=== PATIENT | female | born 1995 | race Caucasian/White ===

== ENCOUNTER 2016-07-02 03:57 | Outpatient (CLI) | payer OTHER ==
[~2016-07-02] VITALS: Ht 170.2 cm; Wt 85.0 kg
--- NOTE | 2016-07-02 06:51 | HPE ---
DATE OF ADMISSION: 07/02/2016 21 old 1, para 0 at 39 and 6 weeks of gestation, came in with irregular contractions. No vaginally bleeding or no vaginal loss. LMP 09/27/2015, EDC 07/03/2016. She is presently on Prozac for anxiety and apparently took her Prozac prior to coming into labor and delivery. Labs show she is B+, HIV negative, Hep negative, RPR negative, rubella immune. Varicella immune. Urine was negative. Gonorrhea and chlamydia are negative. 1-hour glucose was 80. Group B Streptococcus (GBS) is negative. She is in no acute distress. Her blood pressure is 119/78, temperature is 97.4, respirations are 80 and pulse is 91. Urine is 1.025, trace of blood and negative for the rest. Pelvic examination: She is 1 cm anterior, 80% effaced, -2 station. An hour later, she was a similar condition. Her contractions spaced out. The rest of the examination is unremarkable. She has a category 1 strip, normocephalic, atraumatic. Neck full range of motion. Pupils equal and reactive to light. Distal pulses symmetric. No evidence of DVT, PE or superficial phlebitis. Chest is clear bilaterally to bases. No wheezes or rhonchi. No CVA tenderness. Uterus is nontender. Four quadrant bowel sounds are noted. Appropriate fundal height. No rashes, lesions or pruritus. Does have multiple tattoos. No arthralgia or myalgia. No complaints of cough, wheeze, shortness of breath or dyspnea on exertion. No chest pain, not bleeding. Neuro complete. No incontinency or urgency. No nausea, vomiting, diarrhea or constipation. No diabetic issues. She is a nonsmoker. No alcohol. No drug abuse. She is . There is no domestic violence. In summary, we have a 39 and 6 week gestation with uterine irritability. The patient was counseled regarding kick chart, premature rupture of membranes, bleeding and labor, when to contact provider. The patient has a followup on Tuesday with her provider. Was told to come back at any time should contractions increase, vaginal bleeding or loss of fluid. The patient was discharged undelivered. 30-minute discussion with both and her , understand the plan of care.
[2016-07-03] MEDS ORDERED: PRENTAB9 PO (09:08)
[2016-07-03] MEDS ORDERED: PROZ20CA11 PO (09:30)
[2016-07-03] MEDS ORDERED: FERR325T3 PO (09:32)
== END 2016-07-02 06:25 | disposition home or self-care (01) ==
LOC: M LDO 03:57
PROVIDERS: ATTEND Obstetrics & Gynecology
DX: O47.1 False labor at or after 37 completed weeks of gestation (principal); Z3A.39 39 weeks gestation of pregnancy

== ENCOUNTER 2016-07-03 08:23 | Outpatient (CLI) | payer OTHER ==
[~2016-07-03] VITALS: Ht 170.2 cm; Wt 86.0 kg
[2016-07-03 08:31] VITALS: BP 129/85
[2016-07-03] MEDS ORDERED: PRENTAB9 PO (09:08)
[2016-07-03] MEDS ORDERED: PROZ20CA11 PO (09:30)
[2016-07-03] MEDS ORDERED: FERR325T3 PO (09:32)
[2016-07-03 09:34] VITALS: BP 134/84
[2016-07-04] MEDS ORDERED: TYLE1TAB5 PO (14:28)
[2016-07-04] MEDS ORDERED: COLA100C PO (14:28)
== END 2016-07-03 09:41 | disposition home or self-care (01) ==
LOC: M LDO 08:23
PROVIDERS: ATTEND Obstetrics & Gynecology
DX: O47.1 False labor at or after 37 completed weeks of gestation (principal); Z3A.40 40 weeks gestation of pregnancy

== ENCOUNTER 2016-07-03 23:08 | Outpatient (CLI) | payer OTHER ==
[~2016-07-03 23:08] MED LIST: FERR325T3 PO; PRENTAB9 PO; PROZ20CA11 PO
[2016-07-04] MEDS ORDERED: TYLE1TAB5 PO (14:28)
[2016-07-04] MEDS ORDERED: COLA100C PO (14:28)
== END 2016-07-04 00:22 | disposition home or self-care (01) ==
LOC: M LDO 23:08
PROVIDERS: ATTEND Obstetrics & Gynecology
DX: O47.1 False labor at or after 37 completed weeks of gestation (principal); Z3A.40 40 weeks gestation of pregnancy

== ENCOUNTER 2016-07-04 12:52 | Inpatient (IN) | payer OTHER ==
[~2016-07-04] VITALS: Ht 170.2 cm; Wt 89.0 kg
[2016-07-04] VITALS (20 sets, daily range): BP systolic 115–152; BP diastolic 62–90
[2016-07-04] MEDS ORDERED: LACTATED RINGER'S 1000 ML IV STA (13:00)
[2016-07-04 13:16] LABS: MEAN CORPUSCULAR HEMOGLOBIN 26.8 pg (27.0-33.0); MEAN CORPUSCULAR HGB CONC 34.3 g/dl (32.0-36.5); MEAN CORPUSCULAR VOLUME 78.2 fl (80.0-96.0); RED CELL DISTRIBUTION WIDTH 15.3 % (11.5-14.5); WHITE BLOOD COUNT 18.4 K/mm3 (4.0-10.0)
[2016-07-04] MEDS ORDERED: FENTANYL 2MCG/ML ROPIVACAINE 0.2% NACL 250 ML CADD As Ordered ONE (13:43)
[2016-07-04] MEDS ORDERED: TYLE1TAB5 PO (14:28)
[2016-07-04] MEDS ORDERED: COLA100C PO (14:28)
[2016-07-04] MEDS ORDERED: EPIDURAL COMMENT XX SCH (15:00)
[2016-07-04] MEDS ORDERED: FENTANYL/ROPIVACAINE/NACL CADD 250 ML EPIDURAL SCH (15:00)
[2016-07-04] MEDS ORDERED: LACTATED RINGER'S 1000 ML IV PRN (15:00)
[2016-07-04] MEDS ORDERED: ePHEDrine SULFATE 25 MG/5 ML(5MG/ML) SYRINGE IV PRN (15:00)
[2016-07-04] MEDS ORDERED: ONDANSETRON 4MG/2ML VIAL (J2405) IV PRN (15:00)
[2016-07-04] MEDS ORDERED: REFRIGERATOR IV KEYS XX PRN (15:00)
[2016-07-04] MEDS ORDERED: EPIDURAL/PCA KEYS XX PRN (15:00)
[2016-07-04] MEDS ORDERED: diphenhydrAMINE INJ 50MG/ML VIAL (J1200) IV PRN (15:00)
[2016-07-04] MEDS ORDERED: NALOXONE INJ 0.4 MG/1 ML VIAL (J2310) IV PRN (15:00)
[2016-07-05] VITALS (12 sets, daily range): BP systolic 117–149; BP diastolic 62–86
[2016-07-05] MEDS ORDERED: LR 1,000 ML IV SCH (00:26)
[2016-07-05] MEDS ORDERED: OXYTOCIN DRIP 30 UNITS in APPROPRIATE DILUENT 1 EA IV SCH ×2 (00:30→04:15)
[2016-07-05] MEDS ORDERED: OXYTOCIN 30 UNITS IN 0.9% NaCl 500ML IV BAG (J2590) As Ordered ONE (00:35)
[2016-07-05] MEDS ORDERED: METHYLERGONOVINE MALEATE 0.2 MG/ML VIAL (J2210) IM PRN (04:15)
[2016-07-05] MEDS ORDERED: MEASLES,MUMPS,RUBELLA VACCINE INJ (MMR-II) (90707) SC SCH (04:15)
[2016-07-05] MEDS ORDERED: RHOGAM 300 MCG (1500 IU) INJ (J2790) IM SCH (04:15)
[2016-07-05] MEDS ORDERED: ACETAMINOPHEN 500 MG TAB PO PRN (04:15)
[2016-07-05] MEDS ORDERED: DIBUCAINE 1% OINTMENT 30GM TOP PRN (04:15)
[2016-07-05] MEDS: PRENATAL VITAMIN TAB PO SCH (09:00)
[2016-07-05] MEDS: IBUPROFEN 800 MG TAB PO PRN ×2 (09:08→20:25)
[2016-07-06 06:12] VITALS: BP 119/64
--- NOTE | 2016-07-06 06:52 | IPNPDOC ---
Text Note Date of Service The patient was seen on 07/06/16 at 06:52. NOTE PPD1 prog note Pt states feeling well, minimal pain. VB slowing. Brst feeding OK. No CP/LP/ SOB. Voiding and ambulatory. VSSAF Fundus at U-1, firm LE no CCE a/p: Doing well. Discharge today, to boarding if baby not d/c'd. Sessions VS,Kelly, I+O VSKelly I+O Vital Signs Date Time Temp Pulse Resp B/P Pulse Ox O2 Delivery O2 Flow Rate FiO2 07/06/16 06:12 96.3 67 16 119/64 07/05/16 06:00 97 Room Air I&O- Last 24 Hours up to 6 AM 07/06/16 06:00 Output Total 900 ml Balance -900 ml SESSIONS,BERNARDINO Vega MD Jul 06, 2016 06:52
[2016-07-06] MEDS: PRENATAL VITAMIN TAB PO SCH (08:48)
[2016-07-06] MEDS: IBUPROFEN 800 MG TAB PO PRN (08:49)
[2016-07-06 15:25] VITALS: BP 115/63
[2016-07-06 18:06] VITALS: BP 127/79
[2016-07-07] MEDS: IBUPROFEN 800 MG TAB PO PRN ×2 (00:13→08:50)
[2016-07-07 05:59] VITALS: BP 138/80
[2016-07-07] MEDS: PRENATAL VITAMIN TAB PO SCH (08:50)
[2016-07-07] MEDS ORDERED: PRENTAB9 PO (10:01)
[2016-07-07] MEDS ORDERED: ACET50TA PO (10:01)
[2016-07-07] MEDS ORDERED: IBUP-1114 PO (10:01)
[2016-07-07] MEDS ORDERED: DIBU1OIN TOP (10:02)
[2016-07-07] MEDS ORDERED: COLA100C PO (10:02)
--- NOTE | 2016-07-07 12:38 | DSES ---
DATE OF ADMISSION: 07/04/2016 DATE OF DISCHARGE: 07/07/2016 This lady is a 21-year-old 1, now para 1, who was admitted with spontaneous rupture of membranes and labor at 40 and 1 weeks of gestation. She had a spontaneous vaginal delivery of a live female , 6 pounds 14 ounces, 3101 grams scores of 7 and 9 at one and five minutes respectively. Her admitting hemoglobin was 11.4, hematocrit 33.4 and platelets were 282. Vital signs on discharge today: Blood pressure 138/80, respirations 16, pulse 73, temperature 97.0. We discussed phlebitis, cystitis, mastitis, endometritis and cellulitis, diet, pain management, perineal, breast and wound care, risk factors, as she has anxiety, was on medications, and anemia. She did sustain a right labial laceration which was oversewn in the usual fashion. On discharge, she is normocephalic, atraumatic. Neck: Full range of motion. Pupils equal and reactive to light. Distal pulses are symmetric. No evidence of deep venous thrombosis (DVT), pulmonary embolism (PE), or superficial phlebitis. No wheezes or rhonchi. Chest is clear bilaterally bases. No costovertebral angle (CVA) tenderness. Uterus two below. Lochia is moderate. Four quadrant bowel sounds are noted. Perineum is intact and healing. No rashes or lesions or pruritus. No arthralgia or myalgia. No complaints of cough, wheezes, shortness of breath or dyspnea on exertion. No chest pain. No bleeding. Neurologically complete. No urgency, frequency. No nausea, vomiting, diarrhea, constipation. No diabetic issues. She does not smoke or drink, does not abuse drugs. She is . There is no domestic violence. In summary, we have a term gestational delivered a live female infant for discharge with medications. Follow up in six weeks' time for checkup. D
== END 2016-07-07 13:20 | disposition home or self-care (01) | DRG 775 ==
LOC: M LDO 12:52 → M LDI 12:58 → M OBS 07-05 05:58
PROVIDERS: ADMIT Obstetrics & Gynecology; ATTEND Obstetrics & Gynecology
PROC: 10E0XZZ Delivery of Products of Conception, External Approach (ICD-10-PCS; principal; 2016-07-05)
PROC: 0HQ9XZZ Repair Perineum Skin, External Approach (ICD-10-PCS; 2016-07-05)
DX: O48.0 Post-term pregnancy (principal); F41.9 Anxiety disorder, unspecified; D64.9 Anemia, unspecified; Z37.0 Single live birth; Z3A.40 40 weeks gestation of pregnancy; Z79.899 Other long term (current) drug therapy; O99.344 Other mental disorders complicating childbirth; O99.02 Anemia complicating childbirth; O77.0 Labor and delivery complicated by meconium in amniotic fluid; O70.0 First degree perineal laceration during delivery

== ENCOUNTER → 2016-10-10 | Outpatient (REF) | payer OTHER ==
[~2016-10-10] MED LIST changes: +ACET50TA PO; +COLA100C3 PO; +DIBU1OIN TOP; +IBUP-1114 PO; +TYLE1TAB5 PO
== END ==
LOC: M SFHCLERA 14:21
PROVIDERS: ATTEND Nurse Practitioner Family
DX: R30.0 Dysuria (principal)

== ENCOUNTER 2016-11-11 23:50 | Emergency (ER) | payer OTHER ==
[~2016-11-11] VITALS: Ht 170.2 cm; Wt 81.6 kg
[2016-11-11 23:51] VITALS: BP 113/69
[2016-11-12] MEDS ORDERED: CLAR1TAB2 PO (00:15)
== END 2016-11-12 | disposition left against medical advice (07) ==
LOC: M ED 11-12 00:31
DX: R11.10 Vomiting, unspecified (principal); Z79.899 Other long term (current) drug therapy; Z53.29 Procedure and treatment not carried out because of patient's decision for other reasons

== ENCOUNTER 2017-02-05 18:54 | Emergency (ER) | payer OTHER ==
[~2017-02-05] VITALS: Ht 170.2 cm; Wt 192.0 kg
[~2017-02-05 18:54] MED LIST changes: +CLAR1TAB2 PO; -COLA100C3 PO; +COLA100C5 PO
[2017-02-05 18:55] VITALS: BP 131/77
== END 2017-02-05 21:22 | disposition home or self-care (01) ==
LOC: M ED 18:54
DX: O26.892 Other specified pregnancy related conditions, second trimester (principal); M54.5 Low back pain; R10.2 Pelvic and perineal pain; Z3A.25 25 weeks gestation of pregnancy; O99.512 Diseases of the respiratory system complicating pregnancy, second trimester; J30.9 Allergic rhinitis, unspecified

== ENCOUNTER 2017-02-05 21:21 | Outpatient (CLI) | payer OTHER ==
[~2017-02-05] VITALS: Ht 170.2 cm; Wt 81.2 kg
[2017-02-05 21:31] VITALS: BP 122/78
== END 2017-02-05 22:02 | disposition home or self-care (01) ==
LOC: M LDO 21:21
PROVIDERS: ATTEND Student in an Organized Health Care Education/Training Program
DX: O26.892 Other specified pregnancy related conditions, second trimester (principal); Z3A.25 25 weeks gestation of pregnancy; M54.5 Low back pain

== ENCOUNTER 2017-02-22 12:53 | Emergency (ER) | payer OTHER ==
[~2017-02-22] VITALS: Ht 231.1 cm; Wt 87.7 kg
[2017-02-22] MEDS ORDERED: FERR1TAB8 (13:00)
[2017-02-22] MEDS ORDERED: ALBUTEROL SULFATE 2.5 MG/0.5 ML INH NEB SOLN NEB ONE (14:15)
[2017-02-22] MEDS ORDERED: NS 1,000 ML IV ONE (14:15)
--- NOTE | 2017-02-22 14:36 | REP ---
Chest one-view HISTORY: Dyspnea Comparison: None The lungs are clear. The heart is normal in size. The pulmonary vasculature is normal in appearance. Impression: No acute disease. Signed by Abraham Dominguez MD 02/22/2017 02:27 P
[2017-02-22 15:01] LABS: ALBUMIN 2.8 GM/DL (3.2-5.2); ALBUMIN/GLOBULIN RATIO 0.57 (1.00-1.93); ALKALINE PHOSPHATASE 88 U/L (45-117); ALT/SGPT 16 U/L (12-78); ANION GAP 9 MEQ/L (8-16); AST/SGOT 17 U/L (15-37); BILIRUBIN,TOTAL 0.5 MG/DL (0.2-1.0); BLOOD UREA NITROGEN 6 MG/DL (7-18); CALCIUM LEVEL 8.4 MG/DL (8.5-10.1); CARBON DIOXIDE LEVEL 24 MEQ/L (21-32); CHLORIDE LEVEL 105 MEQ/L (98-107); GLOMERULAR FILTRATION RATE > 60.0 (>60); GLUCOSE, FASTING 98 MG/DL (70-105); POTASSIUM SERUM 3.4 MEQ/L (3.5-5.1); SODIUM LEVEL 138 MEQ/L (136-145); TOTAL PROTEIN 7.7 GM/DL (6.4-8.2)
[2017-02-22 15:02] LABS: BASO % 0.1 % (0.0-1.0); EOS # 0.5 K/mm3 (0.0-0.50); EOS % 2.9 % (0.0-3.0); LARGE UNSTAINED CELL # 0.1 K/mm3 (0.0-0.4); LARGE UNSTAINED CELL % 0.5 % (0.0-4.0); LYMPH # 0.8 K/mm3 (1.5-6.5); LYMPH % 4.6 % (24.0-44.0); MEAN CORPUSCULAR HEMOGLOBIN 24.7 pg (27.0-33.0); MEAN CORPUSCULAR HGB CONC 33.3 g/dl (32.0-36.5); MONO # 0.5 K/mm3 (0.0-0.8); MONO % 3.1 % (0.0-5.0); NEUTROPHILS # 14.6 K/mm3 (1.8-7.7); NEUTROPHILS % 88.8 % (36.0-66.0); PLATELET COUNT, AUTOMATED 270 k/mm3 (150-450); WHITE BLOOD COUNT 16.5 K/mm3 (4.0-10.0)
[2017-02-22 15:09] VITALS: BP 123/71
[2017-02-22] MEDS ORDERED: AMOX500C PO (15:13)
[2017-02-22] MEDS ORDERED: ALBU17IN INH (15:15)
--- NOTE | 2017-02-22 15:18 | REP ---
Clinical: Shortness of breath and edema . Technique: Salvador scale and color Doppler evaluation using linear high frequency transducer. Findings: Ultrasound examination of the right and left lower extremity deep venous structures from the common femoral vein to the popliteal vein demonstrates normal compressibility flow and wave patterns in response to respiration and augmentation. There is no evidence for deep venous thrombosis. Impression: No evidence for deep venous thrombosis bilaterally . Signed by Curt Bacon MD 02/22/2017 03:09 P
== END 2017-02-22 15:50 | disposition home or self-care (01) ==
LOC: EDBD 12:53 → M ED 12:53
DX: O98.513 Other viral diseases complicating pregnancy, third trimester (principal); J06.9 Acute upper respiratory infection, unspecified; Z3A.28 28 weeks gestation of pregnancy

== ENCOUNTER 2017-05-12 18:08 | Inpatient (IN) | payer OTHER ==
[~2017-05-12] VITALS: Ht 170.2 cm; Wt 91.9 kg
[2017-05-12] VITALS (17 sets, daily range): BP systolic 113–138; BP diastolic 61–84
[~2017-05-12 18:08] MED LIST changes: +ALBU17IN INH; +AMOX500C PO; +FERR1TAB8
[2017-05-12] MEDS ORDERED: TUMS500C PO (18:25)
[2017-05-12] MEDS ORDERED: FERR325T3 PO (18:27)
[2017-05-12] MEDS ORDERED: LACTATED RINGER'S 1000 ML IV STA (18:55)
[2017-05-12] MEDS ORDERED: LR 1,000 ML IV SCH ×2 (19:00→19:12)
[2017-05-12] MEDS ORDERED: OXYTOCIN DRIP 30 UNITS in APPROPRIATE DILUENT 1 EA IV SCH (19:15)
[2017-05-12 19:34] LABS: MEAN CORPUSCULAR HEMOGLOBIN 21.5 pg (27.0-33.0); MEAN CORPUSCULAR HGB CONC 31.3 g/dl (32.0-36.5); MEAN CORPUSCULAR VOLUME 68.7 fl (80.0-96.0); PLATELET COUNT, AUTOMATED 208 10^3/uL (150-450); RED CELL DISTRIBUTION WIDTH 20.1 % (11.5-14.5); WHITE BLOOD COUNT 8.5 10^3/uL (4.0-10.0)
--- NOTE | 2017-05-12 19:35 | HPEPDOC ---
Obstetrical History & Physical General Date of Admission May 12, 2017 at 18:46 History of Present Illness 21 y/o at 39+2 with LOF 1-2 hrs ago. Ctx's this AM, not many this afternoon/evening. Pos FM. No VB. Chief Complaint: LOF, term Information Provided By: Patient Care Care: Good Care Dating Final EDC by: LMP, 1st trimester (US) (10 wk US) Antepartum Course Diagnos(e)s closely spaced pregnancies, anemia, on Fe for only one month 1NOV HCT 27.4, PLT 248 Past Medical History Past Obstetrical History : Past Obstetrical History: Multigravida Type of Delivery: Spontaneous Vaginal Del. 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 INTERN History: No pertinent history Past Medical History Medical History depression, no meds currently Surgical History: Denies/None Family History Significant Family History: No pertinent family hx Social History Marital Status: Family situation: Spouse/partner home Psychosocial History: No pertinent psych hx * Smoker: non-smoker Alcohol: Denies Drugs: denies Abuse Violence Screening Have you been hit/kicked/slapp: No Have you been sexually assault: No Imunizations Tdap status: current Influenza Status: needs Allergies Coded Allergies: No Known Allergies (Unverified , 07/04/16) Medications Scheduled Ferrous Sulfate (Ferrous Sulfate) 325 Mg Tab, 325 MG PO TID Multivitamins/ ( 27-0.8 mg) 1 Tab Tab, 1 TAB PO DAILY Scheduled PRN Calcium Carbonate (Tums) 500 Mg Chw, 500 MG PO for INDIGESTION Physical Examination Physical Examination GENERAL: Alert and oriented times three. ABDOMEN: Gravid and non-tender to touch. FETUS: Is vertex (VTX) by sterile vaginal examination (SVE), 3/75/-2/vtx well applied EXTREMITIES: No edema. Vital Signs/I&O Vital Signs Date Time Temp Pulse Resp B/P (MAP) Pulse Ox O2 Delivery O2 Flow Rate FiO2 05/12/17 18:23 120 05/12/17 18:20 98.8 130/74 (92) Laboratory Data 24H [facility] Laboratory Tests 2 05/12/17 19:12: Serology Scanned Report Hepatitis B Testing Urine Culture: Contaminated Pertinent Laboratoy Data Blood Type: B+ RBC Antibody Screen: Negative HIV: Negative Hepatitis B: Negative Hepatitis C: Unknown Rapid Plasma Reagin: Nonreactive Rubella: Immune Varicella: Immune Chlamydia/Gonorrhea: Negative Group B Streptococcus: Negative Quad Screen Test: Declined Cystic Fibrosis: Negative Glucose Tolerance Test: 131 Anatomy Ultrasound Placenta Location: Posterior Normal Anatomy: Yes Placenta Previa: No Assessment Variability: Moderate Accelerations: Positive Decelerations: None Tocometer Frequency: irregular Assessment/Plan Assessment SROM at ~1800. Favorable cx. Will start pitocin as is not really jacqueline much. Plan Admit and orient. Wire Mesh Knitter and consent. Diet: clrs Group B Streptococcus (GBS) neg Labs and intravenous (IV) per unit protocol. Counseled on Pitocin and augmentation of labor (IOL). Lactated Ringers (LR): Bolus 1000 mL, then at 125 mL/hr. Anticipate C-S as appropriate. SESSIONS,BERNARDINO Vega MD May 12, 2017 19:35
[2017-05-12 20:22] LABS: MEAN CORPUSCULAR HEMOGLOBIN 21.6 pg (27.0-33.0); MEAN CORPUSCULAR HGB CONC 30.5 g/dl (32.0-36.5); MEAN CORPUSCULAR VOLUME 70.7 fl (80.0-96.0); PLATELET COUNT, AUTOMATED 273 10^3/uL (150-450); WHITE BLOOD COUNT 12.4 10^3/uL (4.0-10.0)
[2017-05-12] MEDS ORDERED: FENTANYL 2MCG/ML ROPIVACAINE 0.2% IN 0.9% NACL 200ML IVBAG As Ordered ONE (20:52)
[2017-05-12] MEDS ORDERED: LACTATED RINGER'S 1000 ML IV PRN (22:45)
[2017-05-12] MEDS ORDERED: NALOXONE INJ 0.4 MG/1 ML VIAL (J2310) IV PRN (22:45)
[2017-05-12] MEDS ORDERED: ONDANSETRON 4MG/2ML VIAL (J2405) IV PRN (22:45)
[2017-05-12] MEDS ORDERED: EPIDURAL COMMENT XX SCH (22:45)
[2017-05-12] MEDS ORDERED: REFRIGERATOR IV KEYS XX PRN (22:45)
[2017-05-12] MEDS ORDERED: EPIDURAL/PCA KEYS XX PRN (22:45)
[2017-05-12] MEDS ORDERED: ePHEDrine SULFATE 25 MG/5 ML(5MG/ML) SYRINGE IV PRN (22:45)
[2017-05-12] MEDS ORDERED: diphenhydrAMINE INJ 50MG/ML VIAL (J1200) IV PRN (22:45)
[2017-05-12] MEDS ORDERED: FENTANYL/ROPIVACAINE/NACL BAG 200 ML EPIDURAL SCH (22:45)
[2017-05-13] VITALS (12 sets, daily range): BP systolic 105–148; BP diastolic 59–82
--- NOTE | 2017-05-13 00:38 | IPNPDOC ---
Text Note Date of Service The patient was seen on 05/13/17. NOTE FHT Cat 1. One isolated decel. Pos accels and mod darling. Cx 7/100/0 Recheck in ~2-3 hrs, sooner prn. Sessions VS,Kelly, I+O VSKelly I+O Laboratory Tests 05/12/17 19:27 Red Blood Count 5.72 H, Mean Corpuscular Volume 68.7 L, Mean Corpuscular Hemoglobin 21.5 L, Mean Corpuscular Hemoglobin Concent 31.3 L, Red Cell Distribution Width 20.1 H 05/12/17 20:13 Red Blood Count 4.03, Mean Corpuscular Volume 70.7 L, Mean Corpuscular Hemoglobin 21.6 L, Mean Corpuscular Hemoglobin Concent 30.5 L, Red Cell Distribution Width 19.0 H Vital Signs Date Time Temp Pulse Resp B/P (MAP) Pulse Ox O2 Delivery O2 Flow Rate FiO2 05/12/17 22:58 99.3 65 17 113/63 (80) SESSIONS,BERNARDINO Vega MD May 13, 2017 00:38
[2017-05-13] MEDS ORDERED: OXYTOCIN DRIP 30 UNITS in APPROPRIATE DILUENT 1 EA IV SCH (02:48)
--- NOTE | 2017-05-13 02:54 | DNPDOC ---
[facility] Delivery Note Delivery Note DATE OF DELIVERY: [id number] @[id number] PREDELIVERY DIAGNOSIS: 39+3/7 weeks' gestation and labor. POST DELIVERY DIAGNOSIS: Delivered. PROCEDURE: Spontaneous vaginal delivery STORE OPERATIONS SPECIALIST: Dr. Merrill ANESTHESIA: Epidural ESTIMATED BLOOD LOSS: 200 mL. FINDINGS: 8 pound 7 ounce male infant, Score 9/9 DELIVERY SUMMARY: Pushed well after reaching C/C. No delay on the perineum of the vtx or ant left shoulder. Body del'd, to abd. Good tone and cry. Cord C/ C by FOB. Fundal massage, placenta del'd intact. No lacs. Uncomplicated. BERNARDINO Ayoub MD, MD May 13, 2017 02:54
[2017-05-13] MEDS ORDERED: DIBUCAINE 1% OINTMENT 30GM TOP PRN (03:00)
[2017-05-13] MEDS ORDERED: METOCLOPRAMIDE INJ 10MG/2ML VIAL (J2765) IV PRN (03:00)
[2017-05-13] MEDS ORDERED: RHOGAM 300 MCG (1500 IU) INJ (J2790) IM SCH (03:00)
[2017-05-13] MEDS ORDERED: MEASLES,MUMPS,RUBELLA VACCINE INJ (MMR-II) (90707) SC SCH (03:00)
[2017-05-13] MEDS ORDERED: ACETAMINOPHEN TAB 650MG DOSE (2X325MG) PO PRN (03:00)
[2017-05-13] MEDS: IBUPROFEN 800 MG TAB PO PRN ×2 (04:14→12:17)
[2017-05-13] MEDS: DOCUSATE SODIUM 100 MG CAP PO SCH ×2 (07:39→21:00)
[2017-05-13] MEDS: PRENATAL VITAMINS CHEWABLE TABLET PO SCH (07:39)
[2017-05-14] MEDS: IBUPROFEN 800 MG TAB PO PRN (00:26)
[2017-05-14 06:15] VITALS: BP 114/56
--- NOTE | 2017-05-14 08:58 | IPNPDOC ---
Progress Note Date of Service The patient was seen on 05/14/17 at 08:54. Progress Note PPD 1 Pt is doing well, just "sore". She is ambulating, voiding spontaneously and tolerating regular diet without issue. Breast feeding well. Denies f/c/n/v/CP/ SOB. Lochia is minimal. Vitals wnl, afebrile General: WDWN, resting comfortably Abdomen: soft, ND, NTTP, fundus firm at u-2cm Extremities: no pain with palpation of calves Assessment: Joyce is a 21yo [id number] doing well PPD 1 s/p uncomplicated at 39w3d. Vitals wnl, exam benign. well. Hemodynamically stable with no evidence of infection. Plan: -Discharge to home today if infant is discharged, otherwise may board 1 extra night -Has home meds: motrin, lanolin, colace -Routine appointment in 6 weeks -Discussed return precautions at length Dr. Kaela Harris MD VS, I&O, 24H, Fishbone Vital Signs/I&O Vital Signs Date Time Temp Pulse Resp B/P (MAP) Pulse Ox O2 Delivery O2 Flow Rate FiO2 05/14/17 06:15 97.9 59 18 114/56 (75) 05/13/17 08:09 Room Air Kaela Harris MD May 14, 2017 08:58
[2017-05-14] MEDS ORDERED: ADACEL/BOOSTRIX VACCINE (DIPHTH/PERTUSS/ACELL/TETANUS)0.5ML SYR (90715) IM ONE (09:00)
[2017-05-14] MEDS: PRENATAL VITAMINS CHEWABLE TABLET PO SCH (10:16)
[2017-05-14] MEDS: DOCUSATE SODIUM 100 MG CAP PO SCH (10:16)
[2017-05-14] MEDS ORDERED: IBUP-1114 PO (10:55)
[2017-05-14] MEDS ORDERED: ACET50TA PO (10:55)
[2017-05-14] MEDS ORDERED: COLA100C5 PO (10:55)
== END 2017-05-14 13:00 | disposition home or self-care (01) | DRG 775 ==
LOC: M LDO 18:08 → M LDI 18:46 → M OBS 05-13 04:39
PROVIDERS: ADMIT Obstetrics & Gynecology; ATTEND Obstetrics & Gynecology
PROC: 10E0XZZ Delivery of Products of Conception, External Approach (ICD-10-PCS; principal; 2017-05-13)
DX: O80 Encounter for full-term uncomplicated delivery (principal); Z37.0 Single live birth; Z3A.39 39 weeks gestation of pregnancy; Z79.899 Other long term (current) drug therapy

== ENCOUNTER 2017-10-05 08:47 | Emergency (ER) | payer OTHER ==
[2017-10-05] MEDS: IBUPROFEN 800 MG TAB PO (09:45)
[2017-10-05 09:55] LABS: BASO # 0.1 10^3/uL (0.0-0.2); BASO % 0.6 % (0.0-1.0); EOS # 0.5 10^3/uL (0.0-0.50); EOS % 5.6 % (0.0-3.0); HEMATOCRIT 35.1 % (36.0-47.0); HEMOGLOBIN 11.1 g/dl (12.0-15.5); IMMATURE GRANULOCYTE % 0.2 % (0-3.0); LYMPH # 1.9 10^3/uL (1.5-6.5); LYMPH % 23.5 % (24.0-44.0); MEAN CORPUSCULAR HEMOGLOBIN 23.8 pg (27.0-33.0); MEAN CORPUSCULAR HGB CONC 31.6 g/dl (32.0-36.5); MEAN CORPUSCULAR VOLUME 75.3 fl (80.0-96.0); MONO # 0.5 10^3/uL (0.0-0.8); MONO % 5.8 % (0.0-5.0); NEUTROPHILS # 5.2 10^3/uL (1.8-7.7); NEUTROPHILS % 64.3 % (36.0-66.0); PLATELET COUNT, AUTOMATED 328 10^3/uL (150-450); RED BLOOD COUNT 4.66 10^6/uL (4.00-5.40); RED CELL DISTRIBUTION WIDTH 15.6 % (11.5-14.5); WHITE BLOOD COUNT 8.1 10^3/uL (4.0-10.0)
[2017-10-05 10:02] LABS: KETONE, URINE AUTO RFX NEGATIVE (NEGATIVE); LEUKOCYTE ESTERASE UR AUTO RFX NEGATIVE (NEGATIVE); MUCUS, URINE RFX SMALL (NEGATIVE); NITRITE, URINE AUTO RFX NEGATIVE (NEGATIVE); RBC, URINE AUTO RFX 1 /HPF (0-3); SPECIFIC GRAVITY UR AUTO RFX 1.019 (1.002-1.035); SQUAM EPITHELIAL CELL UR AURFX 0 /HPF (0-6); WBC, URINE AUTO RFX 2 /HPF (0-3)
[2017-10-05 10:06] LABS: ANION GAP 6 MEQ/L (8-16); BLOOD UREA NITROGEN 10 MG/DL (7-18); CALCIUM LEVEL 8.7 MG/DL (8.5-10.1); CARBON DIOXIDE LEVEL 26 MEQ/L (21-32); CHLORIDE LEVEL 109 MEQ/L (98-107); CREATININE FOR GFR 0.87 MG/DL (0.55-1.30); GLOMERULAR FILTRATION RATE > 60.0 (>60); GLUCOSE, FASTING 79 MG/DL (70-100); POTASSIUM SERUM 3.7 MEQ/L (3.5-5.1); SODIUM LEVEL 141 MEQ/L (136-145)
== END 2017-10-05 11:21 | disposition home or self-care (01) ==
LOC: M ED 08:47
DX: R10.9 Unspecified abdominal pain (principal); K59.00 Constipation, unspecified; Z97.5 Presence of (intrauterine) contraceptive device; N85.4 Malposition of uterus; R93.8 Abnormal findings on diagnostic imaging of other specified body structures
CPT/HCPCS: 76856

== ENCOUNTER → 2017-12-29 | Outpatient (REF) | payer OTHER | LOC: M SFHCLERA 17:34 | DX: J02.9 Acute pharyngitis, unspecified (principal) ==

== ENCOUNTER → 2018-05-17 | Outpatient (REF) | payer OTHER | LOC: M SFHCLERA 14:47 | DX: R68.89 Other general symptoms and signs (principal) ==

== ENCOUNTER → 2018-05-23 | Outpatient (REF) | payer OTHER | LOC: M SFHCLERA 10:16 | DX: R19.7 Diarrhea, unspecified (principal) ==